=== PATIENT | female | born 1990 | race Two or more races ===

== ENCOUNTER 2017-12-02 10:49 | Outpatient (CLI) | payer OTHER ==
[~2017-12-02 10:49] MED LIST: GILTUSS LIQUID237 M1 PO; KETO10TA2 PO; PROVENTIL3 ML/2.5 M IH; ZITHROMAX500 MG PO
== END 2017-12-02 13:11 | disposition home or self-care (01) ==
LOC: SONOGRAMA 10:49
DX: K46.0 Unspecified abdominal hernia with obstruction, without gangrene (principal)

== ENCOUNTER 2017-12-02 10:54 | Outpatient (CLI) | payer OTHER | END 2017-12-02 13:13 | disposition home or self-care (01) | LOC: RAD 10:54 | DX: K46.9 Unspecified abdominal hernia without obstruction or gangrene (principal); R13.19 Other dysphagia; M25.522 Pain in left elbow ==

== ENCOUNTER 2017-12-12 10:15 | Outpatient (CLI) | payer OTHER | END 2017-12-12 10:24 | disposition home or self-care (01) | LOC: SONOGRAMA 10:15 | DX: E04.1 Nontoxic single thyroid nodule (principal) ==

== ENCOUNTER 2018-01-16 10:20 | Outpatient (CLI) | payer OTHER | END 2018-01-17 06:03 | disposition home or self-care (01) | LOC: RAD 10:20 | DX: Z01.818 Encounter for other preprocedural examination (principal) ==

== ENCOUNTER 2018-05-13 18:37 | Emergency (ER) | payer OTHER ==
[~2018-05-13] VITALS: Ht 144.8 cm; Wt 113.4 kg
[2018-05-13] MEDS ORDERED: SYNTHROID175 MCG (19:03)
== END 2018-05-13 21:39 | disposition home or self-care (01) ==
LOC: ER 18:37
DX: M62.830 Muscle spasm of back (principal)

== ENCOUNTER 2018-11-12 22:22 | Inpatient (IN) | payer OTHER ==
[~2018-11-12] VITALS: Ht 144.8 cm; Wt 106.1 kg
[~2018-11-12 22:22] MED LIST changes: +SYNTHROID175 MCG
--- NOTE | 2018-11-12 22:34 | NUR ---
SE RECIBE PT FEMINA DE 28HRS QUE REFIERE DOLOR EN TODA LA KOLE DORSA. ADICIONAL PT PRESENTQA NAUCEAS, DOLOR ABDOMINAL Y DIARREAS DESDE EL ALLA DE JASON. PT TUVO HOY 8 EPISODIOS DE DIARREA, COLOR LEAH FOSFORESENTE.
--- NOTE | 2018-11-13 01:35 | NUR ---
SE RECIBE FEMINA ALERTA Y ORIENTADA POR RES ESFERAS EN IDRIS CON BARANDAS SEGURAS Y ELEVADAS. SE ORIENTA SOBRE TRATAMIENTO. SE LEILA MUESTRAS DE POONAM ORDENADAS. SE CANALIZA CON AREA DE NATALIE\OPUNCION STAR DE EDEMA O ENROJECIMIENTO. SE ADMINISTRAN MEDICAMNENTOS ORDENADOS. SE MANTIENE EN OBSERVACION POR CAMBIOS.
--- NOTE | 2018-11-13 06:03 | NUR ---
PACIENTE ALERTA Y ORIENTADA X3. SE ORIENTA SOBRE TX Y PROCEDIMIENTO A REALIZAR Y REFIERE ENTENDER. SE ADMINISTRA MEDICAMENTO MATTHEW ORDEN MEDICA. SE REALIZA MUESTRAS DE LABORATORIO BAJO MEDIDAS ASEPTICAS. PACIENTE SE MANTIENE BAJO OBSERVACION POR CAMBIOS SIGNIFICATIVOS.
== END 2018-11-17 11:30 | disposition left against medical advice (07) | DRG 440 ==
LOC: ER 22:22 → MEDJ 11-13 17:02
PROVIDERS: ADMIT Internal Medicine
PROC: BW21ZZZ Computerized Tomography (CT Scan) of Abdomen and Pelvis (ICD-10-PCS; principal; 2018-11-14)
PROC: BW21Y0Z Computerized Tomography (CT Scan) of Abdomen and Pelvis using Other Contrast, Unenhanced and Enhanced (ICD-10-PCS; 2018-11-14)
DX: K85.80 Other acute pancreatitis without necrosis or infection (principal)

== ENCOUNTER 2019-05-18 15:30 | Outpatient (CLI) | payer OTHER | END 2019-05-18 15:47 | disposition home or self-care (01) | LOC: RAD 15:30 | DX: I10 Essential (primary) hypertension (principal) ==

== ENCOUNTER 2019-07-01 19:55 | Emergency (ER) | payer OTHER ==
[~2019-07-01] VITALS: Ht 149.9 cm; Wt 99.8 kg
== END 2019-07-01 22:44 | disposition home or self-care (01) ==
LOC: ER 19:55
DX: S40.011A Contusion of right shoulder, initial encounter (principal); S90.31XA Contusion of right foot, initial encounter; W07.XXXA Fall from chair, initial encounter; Y93.89 Activity, other specified; Y92.098 Other place in other non-institutional residence as the place of occurrence of the external cause; Y99.8 Other external cause status

== ENCOUNTER 2019-12-03 08:10 | Emergency (ER) | payer OTHER ==
[~2019-12-03] VITALS: Ht 144.8 cm; Wt 117.5 kg
== END 2019-12-03 09:35 | disposition home or self-care (01) ==
LOC: ER 08:10
DX: J03.90 Acute tonsillitis, unspecified (principal); D50.8 Other iron deficiency anemias

== ENCOUNTER 2020-07-13 16:29 | Emergency (ER) | payer OTHER ==
[~2020-07-13] VITALS: Ht 149.9 cm; Wt 118.8 kg
== END 2020-07-13 18:16 | disposition home or self-care (01) ==
LOC: ER 16:29
DX: R51 Headache (principal)